=== PATIENT | female | born 1980 | race Caucasian/White ===

== ENCOUNTER 2018-10-21 18:41 | Outpatient (CLI) | payer OTHER ==
--- NOTE | 2018-10-22 09:37 | Ultrasound Report ---
Reason: HISTORY OF UTERINE FIBROID Procedure Date: 10/21/2018 Accession Number: [id number] / [id number] Procedure: US - Transvaginal CPT Code: FULL RESULT: EXAM: PELVIC ULTRASOUND EXAM DATE: 10/21/2018 07:01 PM. CLINICAL HISTORY: History of uterine fibroid. COMPARISON: Abdomen/pelvis w/ 11/16/2015 3:20 PM. TECHNIQUE: Realtime transvaginal pelvic scan performed to identify the uterus and adnexa and as an overview of other pelvic structures, with static image documentation. FINDINGS: Uterus: 7.3 x 3.0 x 4.2 cm, volume 49 cc. Anteverted position. Normal overall size and echotexture. Masses: 1.4 x 1.6 x 2.4 cm posterior fundal intramural fibroid with apparent submucosal component. Endometrium: 4 mm. The fundal endometrium is mildly distorted by the likely fibroid mass with color Doppler flow demonstrated at the intersection of the mass and the endometrium. Cervix: Unremarkable. Right Ovary: 2.8 x 1.9 x 2.5 cm, volume 7.2 cc. Normal echotexture and blood flow. Left Ovary: 3.5 x 1.7 x 1.5 cm, volume 4.7 cc. Normal echotexture and blood flow. Free Fluid: None. Other: None. IMPRESSION: Fundal fibroid with likely submucosal component. RADIA
== END 2018-10-21 18:42 | disposition home or self-care (01) ==
LOC: DI 18:41
PROVIDERS: ATTEND Obstetrics & Gynecology
DX: D25.1 Intramural leiomyoma of uterus (principal)
CPT/HCPCS: 76830

== ENCOUNTER 2019-01-04 14:53 | Emergency (ER) | payer OTHER ==
[2019-01-04 15:00] VITALS: BP 135/83
--- NOTE | 2019-01-04 15:20 | ED Physician Documentation ---
PD HPI WOUND RECHECK - Stated complaint Stated Complaint: INCISION CHECK - Chief complaint Chief Complaint: Wound - Histroy obtained from History obtained from: Patient - History of Present Illness Location: Abdomen (She is 4 weeks out from laparoscopic-assisted vaginal hysterectomy, over the last few days has had increasing pain and drainage from her umbilical port site with a low-grade fever today. 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 : None HEENT: None Psych: None Musculoskeletal: None Derm: None - Past Surgical History Past Surgical History: Yes /VEHICLE UPHOLSTERER: Other - Present Medications Home Medications: Ambulatory Orders Medication Instructions Recorded Confirmed Levothyroxine [Synthroid] 137 mcg ORAL DAILY 09/23/14 11/16/15 Simvastatin 20 mg ORAL DAILY 09/23/14 11/16/15 Ascorbic Acid [Vitamin C] 500 mg PO DAILY 01/04/19 01/04/19 Cephalexin [Keflex] 500 mg PO Q6H #28 capsule 01/04/19 Ferrous Gluconate 240 mg PO DAILY 01/04/19 01/04/19 Loratadine [Claritin] 10 mg PO DAILY 01/04/19 01/04/19 Pseudoephedrine [Sudafed] 30 mg PO Q6H 01/04/19 01/04/19 - Allergies Allergies/Adverse Reactions: Allergies Allergy/AdvReac Type Severity Reaction Status Date / Time adhesive Allergy Rash Verified 01/04/19 15:01 myacins Allergy Hives Uncoded 01/04/19 15:01 - Social History Does the pt smoke?: No Smoking Status: Never smoker Does the pt drink ETOH?: No Does the pt have substance abuse?: No - Immunizations Immunizations are current?: Yes PD ED PE NORMAL - Vitals Vital signs reviewed: Yes - General General: Alert and oriented X 3, No acute distress - Abdomen Abdomen: Other (Abdomen is soft without significant tenderness. The port sites other than the umbilical one look fine. The umbilical one looks like it has a stitch granuloma with some bloody and slightly purulent drainage that was cultured during examination. Examination and bedside ultrasound demonstrates nothing consistent with an abscess.) - Neuro Neuro: Alert and oriented X 3, Normal speech Results - Vitals Vitals: Vital Signs - 24 hr 01/04/19 14:58 Temperature 37.3 C Heart Rate 88 Respiratory 18 Rate Blood Pressure 135/83 H O2 Saturation 97 Oxygen O2 Source Room air Departure - Departure Disposition: 01 Home, Self Care Clinical Impression: Stitch granuloma Qualifiers: Encounter type: initial encounter Qualified Code(s): T81.89XA - Other complications of procedures, not elsewhere classified, initial encounter Condition: Good Record reviewed to determine appropriate education?: Yes Instructions: ED Staph Infec Abx Tx Only Prescriptions: Cephalexin [Keflex] 500 mg PO Q6H #28 capsule Comments: We are performing a wound culture, the results should be done in 48-72 hours. If antibiotic change is necessary we will call you. Return if worse in the meantime, especially if you develop increased pain, fevers, cannot keep down the medication. Otherwise follow-up with your physician in approximately 2-3 days. Your blood pressure was elevated today on check into the emergency department. This does not mean that you have hypertension, it is a common phenomenon to come to the emergency department and have elevated blood pressure. I recommend that you see your primary care physician within the week to have it rechecked when you are feeling better.
== END 2019-01-04 15:28 | disposition home or self-care (01) ==
LOC: ED 14:53
DX: T81.89XA Other complications of procedures, not elsewhere classified, initial encounter (principal); Y83.8 Other surgical procedures as the cause of abnormal reaction of the patient, or of later complication, without mention of misadventure at the time of the procedure; Z90.710 Acquired absence of both cervix and uterus; R03.0 Elevated blood-pressure reading, without diagnosis of hypertension
CPT/HCPCS: 87070; 87181; 87205; 99283

== ENCOUNTER 2019-07-29 11:35 | Outpatient (CLI) | payer OTHER ==
--- NOTE | 2019-07-29 11:23 | CT Report ---
Reason: CHRONIC MAXILLARY SINUSITIS Procedure Date: 07/29/2019 Accession Number: [id number] / [id number] Procedure: CT - Sinuses CPT Code: FULL RESULT: EXAM: CT SINUS EXAM DATE: 07/29/2019 12:34 AM. HISTORY: CHRONIC MAXILLARY SINUSITIS. COMPARISONS: None. TECHNIQUE: Routine multi-axial CT imaging performed through the sinuses. Iodinated IV contrast: None. Reconstructions: Multiplanar reformats. In accordance with CT protocol optimization, one or more of the following dose reduction techniques were utilized for this exam: automated exposure control, adjustment of mA and/or KV based on patient size, or use of iterative reconstructive technique. FINDINGS: RIGHT Frontal: Lobulated inferior membrane thickening. Ethmoid: Normal. Maxillary: Inferior membrane thickening Sphenoid: Normal. Drainage Pathways: The frontal recess, ostiomeatal complex and sphenoethmoidal recess are patent and normal. LEFT Frontal: Normal. Ethmoid: Normal. Maxillary: Normal. Sphenoid: Normal. Drainage Pathways: The frontal recess, ostiomeatal complex and sphenoethmoidal recess are patent and normal. Nasal Cavity: Normal. No mass or significant anatomic abnormality evident. Osseous Structures: Unremarkable. Orbits: Unremarkable. Other: Mastoid air cells and middle ear cavities normally aerated. Temporomandibular joints and C1-C2 anatomically aligned. IMPRESSION: Mild membrane thickening inferior right frontal and maxillary sinuses. Otherwise negative sinus CT. RADIA
== END 2019-07-29 11:36 | disposition home or self-care (01) ==
LOC: DI 11:35
PROVIDERS: ATTEND Otolaryngology Otolaryngology/Facial Plastic Surgery
DX: J32.0 Chronic maxillary sinusitis (principal)
CPT/HCPCS: 70486

== ENCOUNTER 2019-10-18 11:57 | Outpatient (CLI) | payer OTHER ==
--- NOTE | 2019-10-24 07:22 | Mammography Report ---
Reason: TECH REPEAT - ROUTINE MAMMO Procedure Date: 10/18/2019 Accession Number: [id number] / [id number] Procedure: [facility] - Screening Mammo w/Sree CPT Code: FULL RESULT: FINDINGS: IMPRESSION: For results, please reference the addended screening mammogram report from 09/20/2019.
== END 2019-10-18 11:58 | disposition home or self-care (01) ==
LOC: DI 11:57
PROVIDERS: ATTEND Physician Assistant
DX: Z12.31 Encounter for screening mammogram for malignant neoplasm of breast (principal)
CPT/HCPCS: 77063; 77067

== ENCOUNTER 2021-10-22 14:15 | Outpatient (CLI) | payer OTHER ==
--- NOTE | 2021-11-04 11:14 | Mammography Report ---
BILATERAL DIGITAL SCREENING MAMMOGRAM 3D/2D: 10/22/2021 CLINICAL: Routine screening. Comparison is made to exams dated: 10/18/2019 mammogram and 09/20/2019 mammogram - [facility]. The tissue of both breasts is heterogeneously dense. This may lower the sensitivity of mammography. No significant masses, calcifications, or other findings are seen in either breast. There has been no significant interval change. IMPRESSION: NEGATIVE There is no mammographic evidence of malignancy. A 1 year screening mammogram is recommended. This exam was interpreted at Station ID: [id number]. NOTE: For mammograms, a report in lay terms will be sent to the patient. Approximately 15% of breast malignancies will not be visualized mammographically. In the management of a palpable breast mass, a negative mammogram must not discourage biopsy of a clinically suspicious lesion. Electronically Signed By: Wander Andrade M.D. aty/penrad:11/04/2021 07:09:59 ACR BI-RADS Category 1: Negative 3341F PARENCHYMAL PATTERN: (D) - The breast(s) demonstrate(s) heterogeneously dense fibroglandular eduard morejon. BI-RADS CATEGORY: (1) - 1 RECOMMENDATION: (ANNUAL) - Recommend routine annual screening mammography. [id number] 1 year screening LATERALITY: (B)
== END 2021-10-22 14:16 | disposition home or self-care (01) ==
LOC: DI 14:15
PROVIDERS: ATTEND Physician Assistant
DX: Z12.31 Encounter for screening mammogram for malignant neoplasm of breast (principal)